=== PATIENT | male | born 1960 | race Hispanic/Latino ===

== ENCOUNTER → 2017-11-08 | Outpatient (CLI) | payer OTHER ==
[~2017-11-08] MED LIST: LISI10TA7 PO; METF10004 PO; PRAV10TA39 PO
== END | disposition home or self-care (01) ==
LOC: SLP 20:13
PROVIDERS: ATTEND Family Medicine
DX: G47.33 Obstructive sleep apnea (adult) (pediatric) (principal)
CPT/HCPCS: 95810

== ENCOUNTER → 2018-08-31 | Outpatient (CLI) | payer OTHER ==
[~2018-08-31] MED LIST changes: +METF-446 PO; -METF10004 PO
== END | disposition home or self-care (01) ==
LOC: RAH 07:55
PROVIDERS: ATTEND Internal Medicine Gastroenterology
DX: K74.60 Unspecified cirrhosis of liver (principal); R16.1 Splenomegaly, not elsewhere classified; K82.4 Cholesterolosis of gallbladder
CPT/HCPCS: 76700

== ENCOUNTER 2018-09-03 13:57 | Emergency (ER) | payer OTHER ==
[2018-09-03 15:18] LABS: BASOPHILS % (AUTO) 0.6 % (0.0-5.0); EOSINOPHILS % (AUTO) 4.5 % (0.0-8.0); HEMATOCRIT 41.9 % (42-54); LYMPHOCYTES % (AUTO) 11.3 % (21.0-51.0); MEAN CORPUSCULAR HEMOGLOBIN 29.4 pg (27.0-33.0); MEAN CORPUSCULAR HGB CONC 33.3 g/dL (32.0-36.0); MEAN CORPUSCULAR VOLUME 88.3 fL (79-99); MONOCYTES % (AUTO) 6.5 % (3.0-13.0); NEUTROPHILS % (AUTO) 77.1 % (40.0-77.0); NUCLEATED RED BLOOD CELLS 0.1 % (0.0-0.19); PLATELET COUNT (AUTO) 34 K/uL (130-400); RED BLOOD CELL COUNT(AUTO) 4.74 MIL/uL (4.50-6.20); RED CELL DISTRIBUTION WIDTH 14.6 % (11.0-15.5); WHITE BLOOD COUNT (AUTO) 5.9 K/uL (4.8-10.8)
[2018-09-03 15:28] LABS: CREATININE 0.7 mg/dL (0.5-1.5); POTASSIUM 4.6 mmol/L (3.5-5.1)
[2018-09-03] MEDS ORDERED: SODIUM CHLORIDE 0.9% 50 ML IV ONE (15:28)
[2018-09-03] MEDS ORDERED: SODIUM CHLORIDE 0.9% 500ML 500 ML IV ONE (15:28)
[2018-09-03 15:33] LABS: ALBUMIN 3.7 g/dL (3.5-5.0); BILIRUBIN,TOTAL 3.5 mg/dL (0.2-1.0); TOTAL PROTEIN, SERUM 7.8 g/dL (6.0-8.3)
[2018-09-03 15:35] LABS: AMYLASE 74 U/L (25-115); CREATINE KINASE, TOTAL 182 U/L (21-232)
[2018-09-03] MEDS ORDERED: HYOSCYAMINE SULFATE 0.125 MG TAB.SUBL SL ONE (16:27)
[2018-09-03 16:29] LABS: APPEARANCE,URINE CLEAR (CLEAR); BILIRUBIN,URINE NEGATIVE (NEGATIVE); COLOR,URINE YELLOW (YELLOW); GLUCOSE, URINE (UA) NEGATIVE (NEGATIVE); KETONES,URINE NEGATIVE (NEGATIVE); LEUKOCYTE ESTERASE ,URINE NEGATIVE (NEGATIVE); NITRATE,URINE NEGATIVE (NEGATIVE); OCCULT BLOOD,URINE NEGATIVE (NEGATIVE); PROTEIN,URINE NEGATIVE (NEGATIVE)
[2018-09-03] MEDS ORDERED: SUCRALFATE 1 GM TABLET ONE (18:22)
== END 2018-09-03 18:35 | disposition home or self-care (01) ==
LOC: EDH 13:57
DX: R18.8 Other ascites (principal); D69.6 Thrombocytopenia, unspecified; R10.10 Upper abdominal pain, unspecified; R12 Heartburn; I10 Essential (primary) hypertension; E78.5 Hyperlipidemia, unspecified; Z98.890 Other specified postprocedural states
CPT/HCPCS: 36415; 71045; 74021; 74176; 76705; 80053; 81003; 82150; 82550; 83690; 84484; 85025; 86677; 93005; 96374; 99285; J7040; 96361

== ENCOUNTER → 2018-11-24 | Outpatient (CLI) | payer OTHER ==
[~2018-11-24] MED LIST changes: +IOHEXOL-350 50ML VIAL IV ONE
== END | disposition home or self-care (01) ==
LOC: RAH 07:50
PROVIDERS: ATTEND Internal Medicine Gastroenterology
DX: K74.60 Unspecified cirrhosis of liver (principal); R16.1 Splenomegaly, not elsewhere classified; I70.90 Unspecified atherosclerosis; K44.9 Diaphragmatic hernia without obstruction or gangrene; M47.815 Spondylosis without myelopathy or radiculopathy, thoracolumbar region
CPT/HCPCS: 74170; Q9967

== ENCOUNTER → 2019-01-20 | Outpatient (CLI) | payer OTHER ==
[~2019-01-20] MED LIST changes: +GADODIAMIDE 5 MMOL/10 ML VIAL 5 MMOL/10 ML ML IV ONE; -IOHEXOL-350 50ML VIAL IV ONE
== END | disposition home or self-care (01) ==
LOC: RAH 12:33
PROVIDERS: ATTEND Internal Medicine Gastroenterology
DX: R16.1 Splenomegaly, not elsewhere classified (principal); R77.2 Abnormality of alphafetoprotein
CPT/HCPCS: 74183; A9579

== ENCOUNTER → 2019-09-20 | Outpatient (CLI) | payer OTHER ==
[~2019-09-20] MED LIST changes: +ESOM20CA39 PO; +FERR324T9 PO; -GADODIAMIDE 5 MMOL/10 ML VIAL 5 MMOL/10 ML ML IV ONE; +PANT40TA25 PO; +PROP10TA10 PO
== END | disposition home or self-care (01) ==
LOC: RAH 09:22
PROVIDERS: ATTEND Family Medicine
DX: R16.1 Splenomegaly, not elsewhere classified (principal); R18.8 Other ascites; K82.4 Cholesterolosis of gallbladder; R14.0 Abdominal distension (gaseous)
CPT/HCPCS: 76700